=== PATIENT | female | born 1945 | race Caucasian/White ===

== ENCOUNTER 2022-03-27 12:58 | Emergency (ER) | payer MEDICARE, OTHER ==
[~2022-03-27] VITALS: Ht 157.5 cm; Wt 97.5 kg
[~2022-03-27 12:58] MED LIST: BYETTA5 MCG/0.02 SQ; CARDURA4 MG PO; CARVEDILOL12.5 MG PO; CLONIDINE HCL0.1 MG PO; FOLIC ACID1 MG PO; FUROSEMIDE40 MG PO; IMDUR30 MG PO; LASIX40 MG PO; LISINOPRIL40 MG PO; NIFEDIPINE ER90 MG PO; PLAVIX75 MG PO; POTASSIUM CHLO10 ME1 PO; PRAVASTATIN SOD40 MG PO; PRINIVIL20 MG PO; PROCARDIA XL60 MG PO; SIMVASTATIN80 MG PO; TESSALON PERLE100 MG PO; Z FOLIC ACID PO; Z.0.ASPIRIN CHEW81 M; Z.0.LANTUS100 UNIT/1 SQ; Z.0.NOVOLOG100 UNIT/ SQ; Z.0.PLAVIX75 MG PO
[2022-03-27 13:19] LABS: BASOPHILS # (AUTO) 0.1 (0.0-0.1); BASOPHILS % 0.8 % (0.0-1.0); EOSINOPHILS # (AUTO) 0.2 (0.0-0.4); EOSINOPHILS % 2.2 % (0.0-6.0); HEMOGLOBIN 13.9 g/dL (12.0-16.0); LYMPHOCYTES # (AUTO) 1.6 (1.0-3.2); LYMPHOCYTES % 21.5 % (18.0-39.1); MEAN CORPUSCULAR HGB CONC 30.2 g/dL (31-35); MEAN CORPUSCULAR VOLUME 95.8 fL (81-99); MONOCYTES # (AUTO) 0.7 (0.2-0.8); MONOCYTES % 9.3 % (4.4-11.3); NEUTROPHILS # (AUTO) 4.8 (2.1-6.9); NEUTROPHILS % 65.9 % (38.7-80.0); PLATELET COUNT 192 x10e3/uL (140-360)
[2022-03-27 13:36] LABS: CLARITY,URINE CLEAR (CLEAR); COLOR,URINE YELLOW (YELLOW); KETONES,URINE NEGATIVE (NEGATIVE); LEUKOCYTE ESTERASE ,URINE NEGATIVE (NEGATIVE); NITRITE,URINE NEGATIVE (NEGATIVE); PROTEIN,URINE DIPSTICK NEGATIVE (NEGATIVE); URINE UROBILINOGEN 0.2 mg/dL (0.2 - 1)
[2022-03-27 13:38] LABS: BACTERIA,URINE FEW /HPF; EPITHELIAL CELLS,URINE MODERATE /LPF; WBC,URINE (MAN) 0-5 /HPF (0-5)
[2022-03-27 13:40] LABS: ALBUMIN 3.4 g/dL (3.5-5.0); ANION GAP 10.5 mmol/L (8-16); CALCIUM 9.4 mg/dL (8.4-10.2); CREATININE, SERUM 0.67 mg/dL (0.57-1.11); POTASSIUM 4.5 mmol/L (3.5-5.1)
== END 2022-03-27 15:45 ==
LOC: ER 13:04
DX: R40.4 Transient alteration of awareness (principal); I25.10 Atherosclerotic heart disease of native coronary artery without angina pectoris; G30.9 Alzheimer's disease, unspecified; F02.80 Dementia in other diseases classified elsewhere, unspecified severity, without behavioral disturbance, psychotic disturbance, mood disturbance, and anxiety; I69.351 Hemiplegia and hemiparesis following cerebral infarction affecting right dominant side; Z20.822 Contact with and (suspected) exposure to COVID-19
CPT/HCPCS: 36415; 51700; 70450; 71045; 80053; 81001; 84484; 85025; 93005; 99285; U0002